=== PATIENT | female | born 1965 | race Caucasian/White ===

== ENCOUNTER 2017-02-10 10:13 | Emergency (ER) | payer MEDICAID, OTHER ==
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
--- NOTE | 2017-02-10 11:36 | CT ---
EXAMINATION: Non contrast CT head and facial bones. Coronal and sagittal reformats. HISTORY: Pain FINDINGS: Head: No evidence of intra or extra axial hemorrhage, mass, midline shift, hydrocephalus or edema. No hypoattenuation changes in the major vascular territories to suggest acute infarct. No abnormal intracranial calcifications are detected. No evidence of substantial vascular calcifications. There is mild mucosal thickening within the left maxillary sinus. Pituitary fossa appears unremarkab le. The calvarium is intact. No evidence of skull fracture. Facial bones: The nasal bones appear intact. The maxillary and orbital saab appear normal. Mild lef tward deviation of the nasal septum. The zygomatic arches and pterygoid plates appear intact. The te mporomandibular joints are normal. The middle ear and mastoid air cells are clear. The orbits and gl obes are symmetric. There is disruption of the left styloid process. Nonpathologically enlarged leve l 2 lymph nodes noted. The parotid and submandibular glands appear symmetric. IMPRESSION: 1. No acute intracranial findings. 2. Disruption of the left styloid process.
[2017-02-10 14:19] VITALS: BP 152/79
== END 2017-02-10 11:56 | disposition home or self-care (01) ==
LOC: MW.ED 10:13
DX: S00.83XA Contusion of other part of head, initial encounter (principal); W18.39XA Other fall on same level, initial encounter; Y93.89 Activity, other specified; Y92.838 Other recreation area as the place of occurrence of the external cause; F17.200 Nicotine dependence, unspecified, uncomplicated
CPT/HCPCS: 70450; 70450-26; 70486; 70486-26; 99282; 99283-25